=== PATIENT | female | born 1995 ===

== ENCOUNTER 2021-06-30 13:31 | Emergency (ER) | payer MEDICAID ==
[~2021-06-30] VITALS: Ht 165.1 cm; Wt 55.4 kg
[2021-06-30 13:53] VITALS: BP 114/72; PULSE 104; TEMP 98.4
== END 2021-06-30 15:16 | disposition home or self-care (01) ==
LOC: COL.ER 13:31
DX: R22.42 Localized swelling, mass and lump, left lower limb (principal); F84.0 Autistic disorder